=== PATIENT | female | born 1945 | race Caucasian/White ===

== ENCOUNTER 2016-09-22 21:50 | Emergency (ER) | payer OTHER ==
--- NOTE | 2016-09-22 23:36 | DIAGNOSTIC IMAGING REPORT ---
PROCEDURE: XR SOFT TISSUE NECK INDICATION: DIFFICULTY SWALLOWING TECHNIQUE: AP and lateral views. COMPARISON: None. FINDINGS: Soft tissues of the neck are within normal limits, including the airway, laryngeal ventricle, and epiglottis. Nasopharynx appears normal. Moderate to marked degenerative changes of the lower cervical spine with grade 1 (3 mm) degenerative listhesis of C4 on C5. IMPRESSION: 1. Normal soft tissues of the neck. 2. Moderate to marked degenerative change of the cervical spine.
--- NOTE | 2016-09-22 23:38 | DIAGNOSTIC IMAGING REPORT ---
PROCEDURE: XR FOOT 3 VIEWS - LEFT INDICATION: TRAUMA/INJURY TECHNIQUE: Three views. COMPARISON: None. FINDINGS: There are postoperative changes of the left foot. Status post vertical and corrective osteotomy of the left first metatarsal head with solitary screw (bunionectomy). Status post fixation of the second, third, and fifth toe phalanges extending from the distal phalanges through the metacarpal shafts with three metal pins. Status post partially healed corrective osteotomy of the left fifth metatarsal shaft transfixed with two screws. IMPRESSION: 1. Postoperative change of the left foot including left first metatarsal bunionectomy, percutaneous fixation and pinning of the phalanges of the second, third, and fifth toes, and corrective osteotomy of the left fifth metatarsal shaft. 2. Findings discussed with Dr. Becker.
--- NOTE | 2016-09-23 00:50 | ED CLINICAL REPORT ---
Clinical Report - Physicians/Mid Levels [address] [place] [address] 09/22/2016 21:51 Patient: AKASH GUTHRIE Time Seen: 22:32 Sep 22 2016. Arrived- By private vehicle. Historian- patient. CPT: ER phys charges level 4 (#[id number]). HISTORY OF PRESENT ILLNESS Chief Complaint: DYSPNEA and HISTORY OF ASTHMA. This started 5 days [employer]; ( Pt stated she is having difficulty breathing, including a cough which started after surgery on Friday. Pt reports increasing albuterol inhaler at home without relief.). She has had a cough. and is still present. The dyspnea is described as moderate and is worsened by exertion and is improved by rest. The patient has had a cough. She has had scant amounts of thick sputum. No chest pain or discomfort, anxiety or dizziness. She has had calf pain (after fall on her scooter .). (Patient notes her difficulty with breathing came on right after surgery. She did not have calf leg or swelling at that time. She tried her asthma medications but this didn't seem to help either. She notes that this has persisted. No fever or chills. Has a cough but scant sputum. She has lost her voice like laryngitis. She admits she was intubated for the procedure on her left foot.). Similar symptoms previously: As bad. Diagnosis: asthma. Recent medical care: The patient was seen recently at another facility in a clinic (yesterday: [place] [facility] walk-in.). Seen for similar symptoms. Evaluation/treatment- prednisone. Diagnosis: asthma. REVIEW OF SYSTEMS No eye irritation, nasal discharge, sinus drainage, nausea or vomiting. No abdominal pain, diarrhea, black stools, bloody stools or fainting episodes. No difficulty with urination, excessive urination, skin rash or enlarged lymph nodes. The patient has had a sore throat. Fell last night in the BR and landed on her surgical foot. Developed left calf pain. All systems otherwise negative, except as recorded above. PAST HISTORY Asthma. Appendectomy. Hammer toe operation. Knee Prosthesis. Shoulder Surgery. Tonsillectomy. Medications: Hydrocodone-Acetaminophen Oral. Allergies: Dicyclomine. SOCIAL HISTORY Never smoker. Occasional alcohol use. No drug use. ADDITIONAL NOTES The nursing notes have been reviewed. PHYSICAL EXAM Vital Signs: 09/22/2016 23:21 BP: 157/70. HR: 80. RR: 20. O2 saturation: 100%. 09/22/2016 22:18 HR: 78. RR: 18. O2 saturation: 95%. Temp: 98.2 F. Pain level now: 01/18. Appearance: Alert. No acute distress. Anxious. Eyes: Pupils equal, round and reactive to light. Eyes normal inspection. ENT: Ears normal. Nose normal. Pharynx normal. Uvula midline. Neck: Normal inspection. No jugular venous distention. Neck supple. CVS: Normal heart rate and rhythm. Heart sounds normal. Pulses normal. Respiratory: No respiratory distress. Expiratory mild bilateral wheezes in the bases. No stridor or rales. Abdomen: Soft and nontender. Back: Normal inspection. Skin: Skin warm. Normal skin color. No rash. Extremities: Extremities exhibit normal ROM. No calf tenderness. No lower extremity edema. Neuro: Oriented X 3. No motor deficit. No sensory deficit. Reflexes normal. LABS, X-RAYS, AND EKG Laboratory Tests: CBC w Diff: (MAGNUS: 09/22/2016 23:06) ( MsgRcvd 09/22/2016 23:30) Final results Test Result Flag Units (Reference) WHITE BLOOD COUNT 10.3 K/uL (4.5-11.5) RED BLOOD COUNT 4.20 M/uL (4.00-5.20) HEMOGLOBIN 12.8 gm/dL (12.0-16.0) HEMATOCRIT 37.5 % (36.0-46.0) MEAN CELL VOLUME 89 fL (80-100) MEAN CORPUSCULAR HGB 30 pg (26-34) MEAN CORPUSCULAR HGB CONC 34 g/dL (31-37) RED CELL DISTRIBUTION WIDTH 13.3 % (11.6-14.8) PLATELET COUNT 362 K/uL (150-400) NEUTROPHIL % 75.6 H % (50-75) LYMPH % 14.9 L % (25-40) MONO % 9.1 % (3-14) EOSINOPHIL % 0.2 % (0-4) BASOPHIL % 0.2 % (0-2) [id number]: (MAGNUS: 09/22/2016 23:06) ( [facility] 09/22/2016 23:42) Final results Test Result Flag Units (Reference) D-DIMER QUANTITATIVE 0.32 ug/mLFEU (0.27-0.52) The primary value of this quantitative assay relates toits negative predictive value (i.e. exclusion) of pulmonaryembolism/deep vein thrombosis/DIC.Elevated levels of d-dimer may also occur with:, age, cancer, inflammation, liver disease,post-op, infection, hematoma, coronary disease, peripheralarteriopathy, bleeding disorders and thrombolytic treatment.Results should be correlated with other clinical andradiological data.Testing Methodology: Latex Immunoassay [id number]: (MAGNUS: 09/22/2016 23:06) ( [facility] 09/22/2016 23:36) Final results Test Result Flag Units (Reference) C-REACTIVE PROTEIN 1.7 H mg/dL (0.0-0.9) [id number]: (MAGNUS: 09/22/2016 23:06) ( [facility] 09/23/2016 00:08) Final results Test Result Flag Units (Reference) PROCALCITONIN <0.5 ng/mL (0-0.5) PCT Concentration: Interpretation : Risk/option for action PCT <=0.5 ng/mL : Systemic : Low risk forinfection(sepsis): progression to severeis not likely. : systemic infection.Local bacterial : CAUTION-PCT levelsinfection is : below 0.5 ng/mL do notpossible. : exclude an infection,because localizedinfections (withoutsystemic signs) may beassociated with suchlow levels. If PCT ismeasured very earlyafter a bacterialchallenge (usually <6hours), these valuesmay still be low. Inthis case PCT shouldbe re-assessed 6-24hours later. PCT >0.5 and : Systemic infection: Moderate risk for<= 2 ng/mL : (sepsis) is : progression to severepossible, but : systemic infection.other conditions : The patient should beare known to : closely monitoredelevate PCT. : both clinically andby re-assessing PCTwithin 6-24 hours. PCT > 2 ng/mL : Systemic infection: High risk for(sepsis) is likely: progression to severeunless other : systemic infection.causes are known. : PCT >= 10 ng/mL : Important systemic: High likelihood ofinflammatory : severe sepsis orresponse, almost : septic shock.exclusively due to:severe bacterial :sepsis or septic :shock. : Culture, Strep Screen: (MAGNUS: 09/22/2016 23:06) ( MsgRcvd 09/22/2016 23:45) Final results Test Result Flag Units (Reference) RAPID STREP SCREEN - THROAT DATE: 09/22/16 NEGATIVE SCREEN: RAPID STREP SCREEN NEGATIVE; CONFIRMATION TO FOLLOW . Note - Tests: (Lateral neck : Soft tissues appear normal. Discussed with Dr Lancaster.). PROGRESS AND PROCEDURES Course of Care: Albuterol HHN pre 300 and post 330. Albuterol HHN Patient is stable. Symptoms better. Pt has mild tracheitis due to recent ETT with mild asthmatic wheezing. She is already on prednisone. Will add ceftin and have follow up in 2 days. She has her own HHN at home with plenty of medication. Patient/family counseled. Disposition: Discharged. Condition: stable. CLINICAL IMPRESSION Tracheitis due to endotracheal tube. Mild asthma. INSTRUCTIONS No strenuous activity. (cool vaporized air No antihistamines as it makes throat too dry. Continue HHN at home as you have been. Continue your 50 mg a day of prednisone.). Warnings: Further evaluation is necessary. GENERAL WARNINGS: Return or contact your physician immediately if your condition worsens or changes unexpectedly, if not improving as expected, or if other problems arise. Your Current Medications: CONTINUE TAKING THE FOLLOWING MEDICATIONS: Hydrocodone-Acetaminophen Oral. Prescription Medications: Ceftin 500 mg: take 1 tab orally every 12 hours for 10 days. No refills. Substitution is permissible. Follow-up: Follow up with your doctor in two days. Call for the next available appointment. Understanding of the discharge instructions verbalized by patient. Discharge instructions reviewed with and understanding was verbalized by spouse. (Electronically signed by Jerry Becker MD 09/23/2016 8:44)
--- NOTE | 2016-09-23 00:50 | ED NURSING NOTES ---
Clinical Report - Nurses [facility] [address] [place] [address] 09/22/2016 21:51 Patient: AKASH GUTHRIE TRIAGE Triage time 22:18 Sep 22 2016. Acuity: LEVEL 3. Chief Complaint: SHORTNESS OF BREATH. SEPSIS SCREEN: Sepsis Screen: negative. Negative (no infection suspected/documented). YASMINE COMA SCORE: Yasmine Coma Scale: 15- eyes open spontaneously (4); best verbal response- oriented and converses (5); best motor response- obeys commands (6). --22:29 Irene Norris 22:18 09/22/16. HR: 78. RR: 18. O2 saturation: 95%. Temp: 98.2 F (oral). Pain level now: 01/18. --22:29 Irene Norris 01:18 09/23/16. BP: 129/72. --01:18 Irene Norris. Weight: 68 kg stated. Height/Length: 66 inches Per Patient. BMI: 24.2. --22:27 Irene Norris. Medications Hydrocodone-Acetaminophen Oral. --22:23 Irene Norris. Allergies Dicyclomine. --22:25 Irene Norris. History Arrived by private vehicle. Historian: patient. Accompanied by family. ( Pt stated she is having difficulty breathing, including a cough which started after surgery on Friday. Pt reports increasing albuterol inhaler at home without relief.). She has had a cough. SOCIAL HX: Never smoker. Occasional alcohol use. No drug use. No infectious disease exposure. ABUSE ASSESSMENT: No report of abuse. NUTRITIONAL RISK ASSESSMENT: The nutritional risk assessment revealed no deficiencies. FUNCTIONAL ASSESSMENT: Functional assessment: no impairments noted. LEARNING NEEDS ASSESSMENT: The learning needs assessment revealed no barriers. FALL RISK ASSESSMENT: Fall risk assessment completed. Risk factors identified include patient age greater than 65 years and impairment of mobility. Fall interventions initiated. Side rails up x1. Bed in low position. Family at bedside. Call light in reach of patient. Instructed not to get up without assistance. SKIN INTEGRITY ASSESSMENT: Skin integrity risk assessment completed. No skin integrity risk identified. --22:29 Irene Norris. PROBLEMS: Asthma. --22:26 Irene Norris. ADDITIONAL SURGERIES: Appendectomy. Hammer toe operation. Knee Prosthesis. Shoulder Surgery. Tonsillectomy. --22:26 Irene Norris. Interventions ID band on patient. To treatment room. --22:29 Irene Norris. PHYSICAL ASSESSMENT <<STRICKEN ENTRY-- Ambulatory to room. GENERAL / NEURO / PSYCH: Alert. Oriented X 4. Appears in no acute distress. HEENT: Mucous membranes are pink. RESPIRATORY: No respiratory distress. Respirations not labored. Chest nontender. CVS: Normal sinus rhythm noted. GI / : Abdomen soft and nontender. SKIN: Skin is warm and dry. --22:30 Irene Norris --END STRIKE>> Correction --22:38 Irene Norris RESPIRATORY: The patient can speak in full sentences. Cough. Wheezing present. --22:31 Irene Norris 22:39 09/22/16. GENERAL / NEURO / PSYCH: Alert. Oriented X 4. Appears in no acute distress. HEENT: Mucous membranes are pink. RESPIRATORY: Mild respiratory distress. Respirations not labored. The patient can speak in full sentences. Cough. CVS: Normal sinus rhythm noted. SKIN: Skin is warm and dry. --22:39 Irene Norris. NURSING PROGRESS NOTES Monitoring of patient in place. Head of bed elevated. Reassurance given. Call light placed in reach. Side rails up x 1. Bed placed in lowest position. Brakes of bed on. Patient ready for evaluation- ED physician notified. --22:30 Irene Norris Patient transported to radiology by stretcher with Relcy. (23:08 Sep 22 2016). --23:08 Irene Norris Patient ID band checked for patient name and birthdate: patient confirmed. Throat swab obtained for rapid strep and culture; labeled in the presence of the patient and sent to lab. --23:10 Irene Norris Patient ID band checked for patient name: patient confirmed. Blood samples drawn from the left wrist with 23g butterfly by tech per protocol ; labeled in presence of the patient and sent to lab: shante shaw. ([id number]). --23:18 Rebecca Allen 23:21 09/22/2016 Albuterol Neb [place] Nebulizer 2.5 mg given. Given by the respiratory therapist. Allergies verified and confirmed 5 rights. --23:21 Irene Norris 23:21 09/22/16. BP: 157/70. HR: 80. RR: 20. O2 saturation: 100% on room air. --23:25 Irene Norris Reassessment after medication administered. Overall patient status- she states feels better. --23:40 Irene Norris 00:06 09/23/16. ( Per report from RT patient peak flow prior to nebulizer was 300 after nebulizer treatment patient peak flow is at 330). --00:06 Irene Norris 00:35 09/23/16. BP: 137/70. HR: 110. RR: 20. O2 saturation: 95% on room air. --00:36 Irene Norris ( PO fluids given to patient per provider okrenard). --00:37 Irene Norris 00:57 09/23/2016 Albuterol Neb TX Nebulizer 2.5 mg given. Given by the respiratory therapist. Allergies verified and confirmed 5 rights. --00:57 Irene Norris 01:00 09/23/2016 Keflex (Cephalexin) PO 500 mg given. Allergies verified and confirmed 5 rights. --01:05 Irene Norris. DISPOSITION / DISCHARGE Condition at departure: improved and stable. No learning barriers present. Discharge instructions provided and reviewed with the patient and spouse. Reviewed medication(s) side effects, precautions, dosing and course information. Prescription(s) given to the patient. Patient and spouse verbalized understanding. Written instructions provided in Setswana. ( Follow up with PCP in two days. Return if symptoms worsen.). The patient was discharged by the physician. She was discharged home and accompanied by spouse. She left the Emergency Department in a wheelchair and via private vehicle. Spouse driving. --01:18 Irene Norris 01:11 09/23/16. BP: 130/76. HR: 96. RR: 20. O2 saturation: 98% on room air. Temp: 98.9 F (oral). Pain level now: 0/10. --01:18 Irene Norris. Locked/Released at 09/23/2016 1:19 by Irene Norris,
--- NOTE | 2016-09-23 00:50 | ED CLINICAL REPORT ---
Clinical Report - Physicians/Mid Levels [facility] [address] [place] [address] 09/22/2016 21:51 Patient: AKASH GUTHRIE Time Seen: 22:32 Sep 22 2016. Arrived- By private vehicle. Historian- patient. CPT: ER phys charges level 4 (#[id number]). HISTORY OF PRESENT ILLNESS Chief Complaint: DYSPNEA and HISTORY OF ASTHMA. This started 5 days [employer]; ( Pt stated she is having difficulty breathing, including a cough which started after surgery on Friday. Pt reports increasing albuterol inhaler at home without relief.). She has had a cough. and is still present. The dyspnea is described as moderate and is worsened by exertion and is improved by rest. The patient has had a cough. She has had scant amounts of thick sputum. No chest pain or discomfort, anxiety or dizziness. She has had calf pain (after fall on her scooter .). (Patient notes her difficulty with breathing came on right after surgery. She did not have calf leg or swelling at that time. She tried her asthma medications but this didn't seem to help either. She notes that this has persisted. No fever or chills. Has a cough but scant sputum. She has lost her voice like laryngitis. She admits she was intubated for the procedure on her left foot.). Similar symptoms previously: As bad. Diagnosis: asthma. Recent medical care: The patient was seen recently at another facility in a clinic (yesterday: [place] [facility] walk-in.). Seen for similar symptoms. Evaluation/treatment- prednisone. Diagnosis: asthma. REVIEW OF SYSTEMS No eye irritation, nasal discharge, sinus drainage, nausea or vomiting. No abdominal pain, diarrhea, black stools, bloody stools or fainting episodes. No difficulty with urination, excessive urination, skin rash or enlarged lymph nodes. The patient has had a sore throat. Fell last night in the [place] and landed on her surgical foot. Developed left calf pain. All systems otherwise negative, except as recorded above. PAST HISTORY Asthma. Appendectomy. Hammer toe operation. Knee Prosthesis. Shoulder Surgery. Tonsillectomy. Medications: Hydrocodone-Acetaminophen Oral. Allergies: Dicyclomine. SOCIAL HISTORY Never smoker. Occasional alcohol use. No drug use. ADDITIONAL NOTES The nursing notes have been reviewed. PHYSICAL EXAM Vital Signs: 09/22/2016 23:21 BP: 157/70. HR: 80. RR: 20. O2 saturation: 100%. 09/22/2016 22:18 HR: 78. RR: 18. O2 saturation: 95%. Temp: 98.2 F. Pain level now: 01/18. Appearance: Alert. No acute distress. Anxious. Eyes: Pupils equal, round and reactive to light. Eyes normal inspection. ENT: Ears normal. Nose normal. Pharynx normal. Uvula midline. Neck: Normal inspection. No jugular venous distention. Neck supple. CVS: Normal heart rate and rhythm. Heart sounds normal. Pulses normal. Respiratory: No respiratory distress. Expiratory mild bilateral wheezes in the bases. No stridor or rales. Abdomen: Soft and nontender. Back: Normal inspection. Skin: Skin warm. Normal skin color. No rash. Extremities: Extremities exhibit normal ROM. No calf tenderness. No lower extremity edema. Neuro: Oriented X 3. No motor deficit. No sensory deficit. Reflexes normal. LABS, X-RAYS, AND EKG Laboratory Tests: CBC w Diff: (MAGNUS: 09/22/2016 23:06) ( MsgRcvd 09/22/2016 23:30) Final results Test Result Flag Units (Reference) WHITE BLOOD COUNT 10.3 K/uL (4.5-11.5) RED BLOOD COUNT 4.20 M/uL (4.00-5.20) HEMOGLOBIN 12.8 gm/dL (12.0-16.0) HEMATOCRIT 37.5 % (36.0-46.0) MEAN CELL VOLUME 89 fL (80-100) MEAN CORPUSCULAR HGB 30 pg (26-34) MEAN CORPUSCULAR HGB CONC 34 g/dL (31-37) RED CELL DISTRIBUTION WIDTH 13.3 % (11.6-14.8) PLATELET COUNT 362 K/uL (150-400) NEUTROPHIL % 75.6 H % (50-75) LYMPH % 14.9 L % (25-40) MONO % 9.1 % (3-14) EOSINOPHIL % 0.2 % (0-4) BASOPHIL % 0.2 % (0-2) [id number]: (MAGNUS: 09/22/2016 23:06) ( [facility] 09/22/2016 23:42) Final results Test Result Flag Units (Reference) D-DIMER QUANTITATIVE 0.32 ug/mLFEU (0.27-0.52) The primary value of this quantitative assay relates toits negative predictive value (i.e. exclusion) of pulmonaryembolism/deep vein thrombosis/DIC.Elevated levels of d-dimer may also occur with:, age, cancer, inflammation, liver disease,post-op, infection, hematoma, coronary disease, peripheralarteriopathy, bleeding disorders and thrombolytic treatment.Results should be correlated with other clinical andradiological data.Testing Methodology: Latex Immunoassay [id number]: (MAGNUS: 09/22/2016 23:06) ( [facility] 09/22/2016 23:36) Final results Test Result Flag Units (Reference) C-REACTIVE PROTEIN 1.7 H mg/dL (0.0-0.9) [id number]: (MAGNUS: 09/22/2016 23:06) ( [facility] 09/23/2016 00:08) Final results Test Result Flag Units (Reference) PROCALCITONIN <0.5 ng/mL (0-0.5) PCT Concentration: Interpretation : Risk/option for action PCT <=0.5 ng/mL : Systemic : Low risk forinfection(sepsis): progression to severeis not likely. : systemic infection.Local bacterial : CAUTION-PCT levelsinfection is : below 0.5 ng/mL do notpossible. : exclude an infection,because localizedinfections (withoutsystemic signs) may beassociated with suchlow levels. If PCT ismeasured very earlyafter a bacterialchallenge (usually <6hours), these valuesmay still be low. Inthis case PCT shouldbe re-assessed 6-24hours later. PCT >0.5 and : Systemic infection: Moderate risk for<= 2 ng/mL : (sepsis) is : progression to severepossible, but : systemic infection.other conditions : The patient should beare known to : closely monitoredelevate PCT. : both clinically andby re-assessing PCTwithin 6-24 hours. PCT > 2 ng/mL : Systemic infection: High risk for(sepsis) is likely: progression to severeunless other : systemic infection.causes are known. : PCT >= 10 ng/mL : Important systemic: High likelihood ofinflammatory : severe sepsis orresponse, almost : septic shock.exclusively due to:severe bacterial :sepsis or septic :shock. : Culture, Strep Screen: (MAGNUS: 09/22/2016 23:06) ( MsgRcvd 09/22/2016 23:45) Final results Test Result Flag Units (Reference) RAPID STREP SCREEN - THROAT DATE: 09/22/16 NEGATIVE SCREEN: RAPID STREP SCREEN NEGATIVE; CONFIRMATION TO FOLLOW . Note - Tests: (Lateral neck : Soft tissues appear normal. Discussed with Dr Lancaster.). PROGRESS AND PROCEDURES Course of Care: Albuterol HHN pre 300 and post 330. Albuterol HHN Patient is stable. Symptoms better. Pt has mild tracheitis due to recent ETT with mild asthmatic wheezing. She is already on prednisone. Will add ceftin and have follow up in 2 days. She has her own HHN at home with plenty of medication. Patient/family counseled. Disposition: Discharged. Condition: stable. CLINICAL IMPRESSION Tracheitis due to endotracheal tube. Mild asthma. INSTRUCTIONS No strenuous activity. (cool vaporized air No antihistamines as it makes throat too dry. Continue HHN at home as you have been. Continue your 50 mg a day of prednisone.). Warnings: Further evaluation is necessary. GENERAL WARNINGS: Return or contact your physician immediately if your condition worsens or changes unexpectedly, if not improving as expected, or if other problems arise. Your Current Medications: CONTINUE TAKING THE FOLLOWING MEDICATIONS: Hydrocodone-Acetaminophen Oral. Prescription Medications: Ceftin 500 mg: take 1 tab orally every 12 hours for 10 days. No refills. Substitution is permissible. Follow-up: Follow up with your doctor in two days. Call for the next available appointment. Understanding of the discharge instructions verbalized by patient. Discharge instructions reviewed with and understanding was verbalized by spouse. (Electronically signed by Jerry Becker MD 09/23/2016 8:44)
--- NOTE | 2016-09-23 00:50 | ED ORDER SUMMARY ---
..... Patient: AKASH GUTHRIE OrderSheet [facility] VisitID: [id number] [address] [place] [address] 71y, F Registration Date/Time: 09/22/2016 ORDER SHEET Weight: 68.0 kg (stated) Allergies: Dicyclomine GENERAL ORDERS: CBC w Diff Urgent (22:51 09/22/2016 Grey FELDER) (Ack 22:54 AMcQuoid ER Tech1) (23:07 AMcQuoid ER Tech1) PCT (Procalcitonin) Urgent (22:51 09/22/2016 Grey FELDER) (Ack 22:54 AMcQuoid ER Tech1) (23:07 AMcQuoid ER Tech1) CRP Urgent (22:51 09/22/2016 Grey FELDER) (Ack 22:54 AMcQuoid ER Tech1) (23:07 AMcQuoid ER Tech1) Culture, Strep Screen Urgent (22:51 09/22/2016 Grey FELDER) (Ack 22:54 AMcQuoid ER Tech1) (Ack 22:54 HSoule) (23:07 AMcQuoid ER Tech1) Soft Tissue Neck Urgent (22:51 09/22/2016 Grey FELDER) (Ack 22:54 AMcQuoid ER Tech1) (23:15 RFay) Foot 3V Left Urgent (22:51 09/22/2016 Grey FELDER) (Ack 22:54 AMcQuoid ER Tech1) (23:15 RFay) D-Dimer Urgent (22:54 09/22/2016 Grey FELDER) (Ack 23:07 AMcQuoid ER Tech1) (23:07 AMcQuoid ER Tech1) MEDICATION ORDERS: Albuterol Neb Tx 2.5 mg (NOW) (with pre and post peak flows.) (22:52 09/22/2016 Grey FELDER) (23:21 HSoule) Albuterol Neb Tx 2.5 mg (HHN) (00:36 09/23/2016 Grey FELDER) (Ack 0:48 HSoule) (0:57 HSoule) Keflex PO 500 mg (NOW) (00:45 09/23/2016 Grey FELDER) (Ack 0:49 HSoule) (1:05 HSoule) IV FLUIDS: ORDER SHEET NOTES: [Electronically signed by Irene Norris (:09/23/2016)] [Electronically signed by Jerry Becker MD (08:44 09/23/2016)] [Electronically locked/signed by Irene Norris (09/23/2016)]
--- NOTE | 2016-09-23 00:50 | ED ORDER SUMMARY ---
..... Patient: AKASH GUTHRIE OrderSheet [facility] VisitID: [id number] [address] [place] [address] 71y, F Registration Date/Time: 09/22/2016 ORDER SHEET Weight: 68.0 kg (stated) Allergies: Dicyclomine GENERAL ORDERS: CBC w Diff Urgent (22:51 09/22/2016 Grey FELDER) (Ack 22:54 AMcQuoid ER Tech1) (23:07 AMcQuoid ER Tech1) PCT (Procalcitonin) Urgent (22:51 09/22/2016 Grey FELDER) (Ack 22:54 AMcQuoid ER Tech1) (23:07 AMcQuoid ER Tech1) CRP Urgent (22:51 09/22/2016 Grey FELDER) (Ack 22:54 AMcQuoid ER Tech1) (23:07 AMcQuoid ER Tech1) Culture, Strep Screen Urgent (22:51 09/22/2016 Grey FELDER) (Ack 22:54 AMcQuoid ER Tech1) (Ack 22:54 HSoule) (23:07 AMcQuoid ER Tech1) Soft Tissue Neck Urgent (22:51 09/22/2016 Grey FELDER) (Ack 22:54 AMcQuoid ER Tech1) (23:15 RFay) Foot 3V Left Urgent (22:51 09/22/2016 Grey FELDER) (Ack 22:54 AMcQuoid ER Tech1) (23:15 RFay) D-Dimer Urgent (22:54 09/22/2016 Grey FELDER) (Ack 23:07 AMcQuoid ER Tech1) (23:07 AMcQuoid ER Tech1) MEDICATION ORDERS: Albuterol Neb Tx 2.5 mg (NOW) (with pre and post peak flows.) (22:52 09/22/2016 Grey FELDER) (23:21 HSoule) Albuterol Neb Tx 2.5 mg (HHN) (00:36 09/23/2016 Grey FELDER) (Ack 0:48 HSoule) (0:57 HSoule) Keflex PO 500 mg (NOW) (00:45 09/23/2016 Grey FELDER) (Ack 0:49 HSoule) (1:05 HSoule) IV FLUIDS: ORDER SHEET NOTES: [Electronically signed by Irene Nroris (:09/23/2016)] [Electronically signed by Jerry Becker MD (08:44 09/23/2016)] [Electronically locked/signed by Irene Norris (09/23/2016)]
--- NOTE | 2016-09-23 00:50 | ED NURSING NOTES ---
Clinical Report - Nurses [facility] [address] [place] [address] 09/22/2016 21:51 Patient: AKASH GUTHRIE TRIAGE Triage time 22:18 Sep 22 2016. Acuity: LEVEL 3. Chief Complaint: SHORTNESS OF BREATH. SEPSIS SCREEN: Sepsis Screen: negative. Negative (no infection suspected/documented). YASMINE COMA SCORE: Yasmine Coma Scale: 15- eyes open spontaneously (4); best verbal response- oriented and converses (5); best motor response- obeys commands (6). --22:29 Irene Norris 22:18 09/22/16. HR: 78. RR: 18. O2 saturation: 95%. Temp: 98.2 F (oral). Pain level now: 01/18. --22:29 Irene Norris 01:18 09/23/16. BP: 129/72. --01:18 Irene Norris. Weight: 68 kg stated. Height/Length: 66 inches Per Patient. BMI: 24.2. --22:27 Irene Norris. Medications Hydrocodone-Acetaminophen Oral. --22:23 Irene Norris. Allergies Dicyclomine. --22:25 Irene Norris. History Arrived by private vehicle. Historian: patient. Accompanied by family. ( Pt stated she is having difficulty breathing, including a cough which started after surgery on Friday. Pt reports increasing albuterol inhaler at home without relief.). She has had a cough. SOCIAL HX: Never smoker. Occasional alcohol use. No drug use. No infectious disease exposure. ABUSE ASSESSMENT: No report of abuse. NUTRITIONAL RISK ASSESSMENT: The nutritional risk assessment revealed no deficiencies. FUNCTIONAL ASSESSMENT: Functional assessment: no impairments noted. LEARNING NEEDS ASSESSMENT: The learning needs assessment revealed no barriers. FALL RISK ASSESSMENT: Fall risk assessment completed. Risk factors identified include patient age greater than 65 years and impairment of mobility. Fall interventions initiated. Side rails up x1. Bed in low position. Family at bedside. Call light in reach of patient. Instructed not to get up without assistance. SKIN INTEGRITY ASSESSMENT: Skin integrity risk assessment completed. No skin integrity risk identified. --22:29 Irene Norris. PROBLEMS: Asthma. --22:26 Irene Norris. ADDITIONAL SURGERIES: Appendectomy. Hammer toe operation. Knee Prosthesis. Shoulder Surgery. Tonsillectomy. --22:26 Irene Norris. Interventions ID band on patient. To treatment room. --22:29 Irene Norris. PHYSICAL ASSESSMENT <<STRICKEN ENTRY-- Ambulatory to room. GENERAL / NEURO / PSYCH: Alert. Oriented X 4. Appears in no acute distress. HEENT: Mucous membranes are pink. RESPIRATORY: No respiratory distress. Respirations not labored. Chest nontender. CVS: Normal sinus rhythm noted. GI / : Abdomen soft and nontender. SKIN: Skin is warm and dry. --22:30 Irene Norris --END STRIKE>> Correction --22:38 Irene Norris RESPIRATORY: The patient can speak in full sentences. Cough. Wheezing present. --22:31 Irene Norris 22:39 09/22/16. GENERAL / NEURO / PSYCH: Alert. Oriented X 4. Appears in no acute distress. HEENT: Mucous membranes are pink. RESPIRATORY: Mild respiratory distress. Respirations not labored. The patient can speak in full sentences. Cough. CVS: Normal sinus rhythm noted. SKIN: Skin is warm and dry. --22:39 Irene Norris. NURSING PROGRESS NOTES Monitoring of patient in place. Head of bed elevated. Reassurance given. Call light placed in reach. Side rails up x 1. Bed placed in lowest position. Brakes of bed on. Patient ready for evaluation- ED physician notified. --22:30 Irene Norris Patient transported to radiology by stretcher with [employer]. (23:08 Sep 22 2016). --23:08 Irene Norris Patient ID band checked for patient name and birthdate: patient confirmed. Throat swab obtained for rapid strep and culture; labeled in the presence of the patient and sent to lab. --23:10 Irene Norris Patient ID band checked for patient name: patient confirmed. Blood samples drawn from the left wrist with 23g butterfly by tech per protocol ; labeled in presence of the patient and sent to lab: shante shaw. ([id number]). --23:18 Rebecca Allen 23:21 09/22/2016 Albuterol Neb TX Nebulizer 2.5 mg given. Given by the respiratory therapist. Allergies verified and confirmed 5 rights. --23:21 Irene oNrris 23:21 09/22/16. BP: 157/70. HR: 80. RR: 20. O2 saturation: 100% on room air. --23:25 Irene Norris Reassessment after medication administered. Overall patient status- she states feels better. --23:40 Irene Norris 00:06 09/23/16. ( Per report from RT patient peak flow prior to nebulizer was 300 after nebulizer treatment patient peak flow is at 330). --00:06 Irene Norris 00:35 09/23/16. BP: 137/70. HR: 110. RR: 20. O2 saturation: 95% on room air. --00:36 Irene Norris ( PO fluids given to patient per provider okrenard). --00:37 Irene Norris 00:57 09/23/2016 Albuterol Neb TX Nebulizer 2.5 mg given. Given by the respiratory therapist. Allergies verified and confirmed 5 rights. --00:57 Irene Norris 01:00 09/23/2016 Keflex (Cephalexin) PO 500 mg given. Allergies verified and confirmed 5 rights. --01:05 Irene Norris. DISPOSITION / DISCHARGE Condition at departure: improved and stable. No learning barriers present. Discharge instructions provided and reviewed with the patient and spouse. Reviewed medication(s) side effects, precautions, dosing and course information. Prescription(s) given to the patient. Patient and spouse verbalized understanding. Written instructions provided in Turkish. ( Follow up with PCP in two days. Return if symptoms worsen.). The patient was discharged by the physician. She was discharged home and accompanied by spouse. She left the Emergency Department in a wheelchair and via private vehicle. Spouse driving. --01:18 Irene Norris 01:11 09/23/16. BP: 130/76. HR: 96. RR: 20. O2 saturation: 98% on room air. Temp: 98.9 F (oral). Pain level now: 0/10. --01:18 Irene Norris. Locked/Released at 09/23/2016 1:19 by Irene Norris,
--- NOTE | 2016-09-23 08:44 | ED MAR SUMMARY ---
..... Medication Administration Record [facility] [address] [place] [place] [address] Patient: AKASH GUTHRIE Visit ID: [id number] 71y, F Weight: 68.0 kg Height/Length: 66 in BMI: 24.2 ALLERGIES: Dicyclomine Given 23:21 09/22/2016 Irene Norris, Medication Administered: ALBUTEROL [NEB TX], Dose: 2.5 mg Nebulizer Neb TX. Medication Ordered: Albuterol Neb Tx 2.5 mg (NOW) (with pre and post peak flows.). Given 00:57 09/23/2016 Irene Norris, Medication Administered: ALBUTEROL [NEB TX], Dose: 2.5 mg Nebulizer Neb TX. Medication Ordered: Albuterol Neb Tx 2.5 mg (HHN). Given 01:00 09/23/2016 Irene Norris, Medication Administered: KEFLEX [PO] (CEPHALEXIN), Dose: 500 mg PO. Medication Ordered: Keflex PO 500 mg (NOW).
--- NOTE | 2016-09-23 08:44 | ED MED RECONCILIATION SUMMARY ---
Patient: AKASH GUTHRIE Medication Reconciliation Report [facility] VisitID: [id number] [address] [place] [address] 71y, F Registration Date/Time: 09/22/2016 Weight: 68.0 kg Height/Length: 66 in. BMI: 24.2 ALLERGIES: Dicyclomine The patient's Home Medications are listed below: CONTINUE TAKING THE FOLLOWING MEDICATIONS: Hydrocodone-Acetaminophen Oral The source(s) of the original Home Medication information: Not obtained. The following Medications were given to the patient in the Emergency Department: Albuterol [Neb Tx] Neb TX 2.5 mg, administered: 09/22/2016 11:21:00 PM Albuterol [Neb Tx] Neb TX 2.5 mg, administered: 09/23/2016 12:57:00 AM Keflex [PO] PO 500 mg, administered: 09/23/2016 1:00:00 AM The following Medications were prescribed to the patient: Ceftin 500 mg: take 1 tab orally every 12 hours for 10 days. No refills. Substitution is permissible. -- Jerry Becker MD
--- NOTE | 2016-09-23 08:44 | ED MED RECONCILIATION SUMMARY ---
Patient: AKASH GUTHRIE Medication Reconciliation Report [facility] VisitID: [id number] [address] [place] [address] 71y, F Registration Date/Time: 09/22/2016 Weight: 68.0 kg Height/Length: 66 in. BMI: 24.2 ALLERGIES: Dicyclomine The patient's Home Medications are listed below: CONTINUE TAKING THE FOLLOWING MEDICATIONS: Hydrocodone-Acetaminophen Oral The source(s) of the original Home Medication information: Not obtained. The following Medications were given to the patient in the Emergency Department: Albuterol [Neb Tx] Neb TX 2.5 mg, administered: 09/22/2016 11:21:00 PM Albuterol [Neb Tx] Neb TX 2.5 mg, administered: 09/23/2016 12:57:00 AM Keflex [PO] PO 500 mg, administered: 09/23/2016 1:00:00 AM The following Medications were prescribed to the patient: Ceftin 500 mg: take 1 tab orally every 12 hours for 10 days. No refills. Substitution is permissible. -- Jerry Becker MD
--- NOTE | 2016-09-23 08:44 | ED MAR SUMMARY ---
..... Medication Administration Record [facility] [address] [place] [address] Patient: AKASH GUTHRIE Visit ID: [id number] 71y, F Weight: 68.0 kg Height/Length: 66 in BMI: 24.2 ALLERGIES: Dicyclomine Given 23:21 09/22/2016 Irene Norris, Medication Administered: ALBUTEROL [NEB TX], Dose: 2.5 mg Nebulizer Neb TX. Medication Ordered: Albuterol Neb Tx 2.5 mg (NOW) (with pre and post peak flows.). Given 00:57 09/23/2016 Irene Norris, Medication Administered: ALBUTEROL [NEB TX], Dose: 2.5 mg Nebulizer Neb TX. Medication Ordered: Albuterol Neb Tx 2.5 mg (HHN). Given 01:00 09/23/2016 Irene Norris, Medication Administered: KEFLEX [PO] (CEPHALEXIN), Dose: 500 mg PO. Medication Ordered: Keflex PO 500 mg (NOW).
--- NOTE | 2016-09-23 08:44 | ED DISCHARGE INSTRUCTIONS ---
Patient: AKASH GUTHRIE General Instructions [facility] VisitID: [id number] [address] [place] [address] 71y, F Registration Date/Time: 09/22/2016 Tracheitis due to endotracheal tube. Mild asthma. INSTRUCTIONS No strenuous activity. (cool vaporized air No antihistamines as it makes throat too dry. Continue HHN at home as you have been. Continue your 50 mg a day of prednisone.). Warnings: Further evaluation is necessary. GENERAL WARNINGS: Return or contact your physician immediately if your condition worsens or changes unexpectedly, if not improving as expected, or if other problems arise. Your Current Medications: CONTINUE TAKING THE FOLLOWING MEDICATIONS: Hydrocodone-Acetaminophen Oral. Prescription Medications: Ceftin 500 mg: take 1 tab orally every 12 hours for 10 days. No refills. Substitution is permissible. Follow-up: Follow up with your doctor in two days. Call for the next available appointment. Understanding of the discharge instructions verbalized by patient. Discharge instructions reviewed with and understanding was verbalized by spouse. No strenuous activity. (Electronically signed by Jerry Becker MD 09/23/2016 8:44)
--- NOTE | 2016-09-23 08:44 | ED DISCHARGE INSTRUCTIONS ---
Patient: AKASH GUTHRIE General Instructions [facility] VisitID: [id number] [address] [place] [address] 71y, F Registration Date/Time: 09/22/2016 Tracheitis due to endotracheal tube. Mild asthma. INSTRUCTIONS No strenuous activity. (cool vaporized air No antihistamines as it makes throat too dry. Continue HHN at home as you have been. Continue your 50 mg a day of prednisone.). Warnings: Further evaluation is necessary. GENERAL WARNINGS: Return or contact your physician immediately if your condition worsens or changes unexpectedly, if not improving as expected, or if other problems arise. Your Current Medications: CONTINUE TAKING THE FOLLOWING MEDICATIONS: Hydrocodone-Acetaminophen Oral. Prescription Medications: Ceftin 500 mg: take 1 tab orally every 12 hours for 10 days. No refills. Substitution is permissible. Follow-up: Follow up with your doctor in two days. Call for the next available appointment. Understanding of the discharge instructions verbalized by patient. Discharge instructions reviewed with and understanding was verbalized by spouse. No strenuous activity. (Electronically signed by Jerry Becker MD 09/23/2016 8:44)
== END 2016-09-23 01:20 | disposition home or self-care (01) ==
LOC: ED SRH 21:50
DX: J95.89 Other postprocedural complications and disorders of respiratory system, not elsewhere classified (principal); J04.10 Acute tracheitis without obstruction; Y83.8 Other surgical procedures as the cause of abnormal reaction of the patient, or of later complication, without mention of misadventure at the time of the procedure; J45.909 Unspecified asthma, uncomplicated; Z88.8 Allergy status to other drugs, medicaments and biological substances

== ENCOUNTER 2016-10-01 20:31 | Emergency (ER) | payer OTHER ==
--- NOTE | 2016-10-01 22:16 | DIAGNOSTIC IMAGING REPORT ---
PROCEDURE: XR CHEST 2 VIEW INDICATION: COUGH TECHNIQUE: PA and lateral view. COMPARISON: None. FINDINGS: Hyperinflation with mild bibasilar scarring. Cardiovascular structures are normal. Mild degenerative changes of the spine. IMPRESSION: 1. Hyperinflation with bibasilar scarring
--- NOTE | 2016-10-01 22:22 | ED NURSING NOTES ---
Clinical Report - Nurses [facility] [address] [place] [address] 10/01/2016 20:32 Patient: AKASH GUTHRIE TRIAGE Triage time 20:46 Oct 01 2016. Acuity: LEVEL 4. --20:50 Armond Felton R.N. 20:46 10/01/16. BP: 145/68. HR: 78. RR: 16. O2 saturation: 99%. Temp: 97.9 F. Pain level now 5/10. --20:50 Armond Felton R.N. Chief Complaint: (sore throat. had surgery on 09-17-16, has been seen 3 times for throat irritation.). --22:33 Lurdes Felix R.N. Weight: 68 kg stated. Height/Length: 65 inches Per Patient. BMI: 25. --20:48 Armond Felton R.N. Medications Hydrocodone-Acetaminophen Oral. --20:48 Armond Felton R.N. PredniSONE Oral. --20:48 Armond Felton R.N. Allergies Dicyclomine. --20:48 Armond Felton R.N. Doxycycline. --20:48 Armond Felton R.N. Erythromycin. --21:02 Armond Felton R.N. History Arrived by private vehicle. ( Pt reports her throat " fells more constricted " ot is coughing up clear fluid). Onset. (10 days). SOCIAL HX: Never smoker. Occasional alcohol use. No drug use. --20:50 Armond Felton R.N. PROBLEMS: Asthma. --20:49 Armond Felton R.N. ADDITIONAL SURGERIES: Appendectomy. Hammer toe operation. Knee Prosthesis. Shoulder Surgery. Tonsillectomy. --20:49 Armond Felton R.N. Interventions ID band on patient. To treatment room. --20:50 Armond Felton R.N. PHYSICAL ASSESSMENT ( Swollen throat). GENERAL / NEURO / PSYCH: Alert. Oriented X 4. Appears in no acute distress. HEENT: Pupils equal, round and reactive to light. No facial asymmetry noted. Mucous membranes are pink. RESPIRATORY: Respirations not labored. Chest nontender. Breath sounds within normal limits. SKIN: Skin is warm and dry. --20:54 Armond Felton R.N. NURSING PROGRESS NOTES Head of bed elevated. Two patient identifiers checked. Call light placed in reach. Side rails up x 1. Bed placed in lowest position. Brakes of bed on. --20:43 Lurdes Felix R.N. Pulse oximeter and NIBP monitor placed on patient; monitor alarms on. --20:44 Lurdes Felix R.N. Pulse oximeter placed on patient. Call light placed in reach. Side rails up x 1. Bed placed in lowest position. --20:54 Armond Felton R.N. Care transferred and report received. --22:13 Lurdes Felix R.N. DISPOSITION / DISCHARGE Condition at departure: stable. No learning barriers present. Discharge instructions provided and reviewed with the patient. Patient verbalized understanding. Written instructions provided in [place]ibian. The patient was discharged home and accompanied by spouse. She left the Emergency Department ambulatory and via private vehicle. Spouse driving. --22:29 Lurdes Felix R.N. 22:29 10/01/16. BP: 137/74. HR: 81. RR: 16. O2 saturation: 98% on room air. Temp: deferred. Pain level now: 0/10. --22:29 Lurdes Felix R.N. Locked/Released at 10/01/2016 22:34 by Lurdes Felix R.N.
--- NOTE | 2016-10-01 22:22 | ED CLINICAL REPORT ---
Clinical Report - Physicians/Mid Levels [facility] [address] [place] [address] 10/01/2016 20:32 Patient: AKASH GUTHRIE Time Seen: 20:58. Arrived- By private vehicle. Historian- patient. HISTORY OF PRESENT ILLNESS Chief Complaint: DYSPNEA and HISTORY OF ASTHMA. This started about 10 days ago and is still present. It was abrupt in onset and has been constant. The dyspnea is described as moderate. The patient has had a cough productive of scant amounts of thick, clear sputum (since before her L foot surgery done on the of of this month). No fever, chills, chest pain or discomfort or calf pain. No foot swelling. She has experienced sweating episodes and had wheezing and dyspnea on exertion. Recent medical care: The patient was seen recently at this facility and another facility in a clinic. Seen for similar symptoms. Evaluation/treatment: antibiotic prescribed. REVIEW OF SYSTEMS No chills, fever, calf pain, chest pain or pedal edema. No palpitations, abdominal pain, black stools, bloody stools or constipation. No diarrhea, nausea, vomiting or urinary problems. The patient has experienced sweats. All systems otherwise negative, except as recorded above. PAST HISTORY PCP - [facility]. Problems: Asthma. Additional Surgeries: Appendectomy. Hammer toe operation. Knee Prosthesis. Shoulder Surgery. Tonsillectomy. Medications: Azithromycin Oral. PredniSONE Oral. Hydrocodone-Acetaminophen Oral. Allergies: Dicyclomine. Doxycycline. Erythromycin. SOCIAL HISTORY Never smoker. Occasional alcohol use. No drug use. She lives with spouse. Has good social support. FAMILY HISTORY Diabetes in first-degree relative (mother); heart disease in first-degree relative (mother and father), grandparent; asthma in first-degree relative (father). mother with dementia. ADDITIONAL NOTES The nursing notes have been reviewed. PHYSICAL EXAM Vital Signs: 10/01/2016 20:46 BP: 145/68. HR: 78. RR: 16. O2 saturation: 99%. Temp: 97.9 F. Have been reviewed. Appearance: Alert. Eyes: Pupils equal, round and reactive to light. ENT: Mild pharyngeal erythema. (hoarse speech). Neck: Normal inspection. No jugular venous distention. Neck supple. No JVD, thyromegaly or carotid bruit. CVS: Normal heart rate and rhythm. Heart sounds normal. Pulses normal. Respiratory: No respiratory distress. Breath sounds normal. Abdomen: Soft and nontender. No organomegaly. Back: Normal inspection. Skin: Skin warm and dry. Normal skin color. Normal skin turgor. Extremities: Extremities exhibit normal ROM. No calf tenderness. No lower extremity edema. LABS, X-RAYS, AND EKG Chest X-ray: Hyperinflation present. (bibasilar stranding likely scarring scarring or possibly atelectasis). The X-rays were interpreted contemporaneously by me and discussed with the radiologist. PROGRESS AND PROCEDURES Course of Care: Patient is stable. Patient/family counseled. Old medical records reviewed. Disposition: Discharged. Condition: stable. CLINICAL IMPRESSION hoarseness. INSTRUCTIONS Warnings: Further evaluation is necessary. GENERAL WARNINGS: Return or contact your physician immediately if your condition worsens or changes unexpectedly, if not improving as expected, or if other problems arise. Your Current Medications: CONTINUE TAKING THE FOLLOWING MEDICATIONS: Azithromycin Oral. Hydrocodone-Acetaminophen Oral. PredniSONE Oral. Follow-up: Follow up with your doctor tomorrow. Call for the next available appointment. Follow up with an ear, nose and throat physician (an racing driver)- as recommended by your primary care physician. Understanding of the discharge instructions verbalized by patient and family. Follow-up with: Jeramie Lin MD, ENT, , [address], , [place], [id number] Follow up. Call for the next available appointment. (Electronically signed by Dante Faulkner MD 10/01/2016 22:56)
--- NOTE | 2016-10-01 22:22 | ED NURSING NOTES ---
Clinical Report - Nurses [facility] [address] [place] [address] 10/01/2016 20:32 Patient: AKASH GUTHRIE TRIAGE Triage time 20:46 Oct 01 2016. Acuity: LEVEL 4. --20:50 Armond Felton R.N. 20:46 10/01/16. BP: 145/68. HR: 78. RR: 16. O2 saturation: 99%. Temp: 97.9 F. Pain level now 5/10. --20:50 Armond Felton R.N. Chief Complaint: (sore throat. had surgery on 09-17-16, has been seen 3 times for throat irritation.). --22:33 Lurdes Felix R.N. Weight: 68 kg stated. Height/Length: 65 inches Per Patient. BMI: 25. --20:48 Armond Felton R.N. Medications Hydrocodone-Acetaminophen Oral. --20:48 Armond Felton R.N. PredniSONE Oral. --20:48 Armond Felton R.N. Allergies Dicyclomine. --20:48 Armond Felton R.N. Doxycycline. --20:48 Armond Felton R.N. Erythromycin. --21:02 Armond Felton R.N. History Arrived by private vehicle. ( Pt reports her throat " fells more constricted " ot is coughing up clear fluid). Onset. (10 days). SOCIAL HX: Never smoker. Occasional alcohol use. No drug use. --20:50 Armond Felton R.N. PROBLEMS: Asthma. --20:49 Armond Felton R.N. ADDITIONAL SURGERIES: Appendectomy. Hammer toe operation. Knee Prosthesis. Shoulder Surgery. Tonsillectomy. --20:49 Armond Felton R.N. Interventions ID band on patient. To treatment room. --20:50 Armond Felton R.N. PHYSICAL ASSESSMENT ( Swollen throat). GENERAL / NEURO / PSYCH: Alert. Oriented X 4. Appears in no acute distress. HEENT: Pupils equal, round and reactive to light. No facial asymmetry noted. Mucous membranes are pink. RESPIRATORY: Respirations not labored. Chest nontender. Breath sounds within normal limits. SKIN: Skin is warm and dry. --20:54 Armond Felton R.N. NURSING PROGRESS NOTES Head of bed elevated. Two patient identifiers checked. Call light placed in reach. Side rails up x 1. Bed placed in lowest position. Brakes of bed on. --20:43 Lurdes Felix R.N. Pulse oximeter and NIBP monitor placed on patient; monitor alarms on. --20:44 Lurdes Felix R.N. Pulse oximeter placed on patient. Call light placed in reach. Side rails up x 1. Bed placed in lowest position. --20:54 Armond Felton R.N. Care transferred and report received. --22:13 Lurdes Felix R.N. DISPOSITION / DISCHARGE Condition at departure: stable. No learning barriers present. Discharge instructions provided and reviewed with the patient. Patient verbalized understanding. Written instructions provided in Mongolian. The patient was discharged home and accompanied by spouse. She left the Emergency Department ambulatory and via private vehicle. Spouse driving. --22:29 Lurdes Felix R.N. 22:29 10/01/16. BP: 137/74. HR: 81. RR: 16. O2 saturation: 98% on room air. Temp: deferred. Pain level now: 0/10. --22:29 Lurdes Felix R.N. Locked/Released at 10/01/2016 22:34 by Lurdes Felix R.N.
--- NOTE | 2016-10-01 22:22 | ED CLINICAL REPORT ---
Clinical Report - Physicians/Mid Levels [facility] [address] [place] [address] 10/01/2016 20:32 Patient: AKASH GUTHRIE Time Seen: 20:58. Arrived- By private vehicle. Historian- patient. HISTORY OF PRESENT ILLNESS Chief Complaint: DYSPNEA and HISTORY OF ASTHMA. This started about 10 days ago and is still present. It was abrupt in onset and has been constant. The dyspnea is described as moderate. The patient has had a cough productive of scant amounts of thick, clear sputum (since before her L foot surgery done on the of of this month). No fever, chills, chest pain or discomfort or calf pain. No foot swelling. She has experienced sweating episodes and had wheezing and dyspnea on exertion. Recent medical care: The patient was seen recently at this facility and another facility in a clinic. Seen for similar symptoms. Evaluation/treatment: antibiotic prescribed. REVIEW OF SYSTEMS No chills, fever, calf pain, chest pain or pedal edema. No palpitations, abdominal pain, black stools, bloody stools or constipation. No diarrhea, nausea, vomiting or urinary problems. The patient has experienced sweats. All systems otherwise negative, except as recorded above. PAST HISTORY PCP - [facility]. Problems: Asthma. Additional Surgeries: Appendectomy. Hammer toe operation. Knee Prosthesis. Shoulder Surgery. Tonsillectomy. Medications: Azithromycin Oral. PredniSONE Oral. Hydrocodone-Acetaminophen Oral. Allergies: Dicyclomine. Doxycycline. Erythromycin. SOCIAL HISTORY Never smoker. Occasional alcohol use. No drug use. She lives with spouse. Has good social support. FAMILY HISTORY Diabetes in first-degree relative (mother); heart disease in first-degree relative (mother and father), grandparent; asthma in first-degree relative (father). mother with dementia. ADDITIONAL NOTES The nursing notes have been reviewed. PHYSICAL EXAM Vital Signs: 10/01/2016 20:46 BP: 145/68. HR: 78. RR: 16. O2 saturation: 99%. Temp: 97.9 F. Have been reviewed. Appearance: Alert. Eyes: Pupils equal, round and reactive to light. ENT: Mild pharyngeal erythema. (hoarse speech). Neck: Normal inspection. No jugular venous distention. Neck supple. No JVD, thyromegaly or carotid bruit. CVS: Normal heart rate and rhythm. Heart sounds normal. Pulses normal. Respiratory: No respiratory distress. Breath sounds normal. Abdomen: Soft and nontender. No organomegaly. Back: Normal inspection. Skin: Skin warm and dry. Normal skin color. Normal skin turgor. Extremities: Extremities exhibit normal ROM. No calf tenderness. No lower extremity edema. LABS, X-RAYS, AND EKG Chest X-ray: Hyperinflation present. (bibasilar stranding likely scarring scarring or possibly atelectasis). The X-rays were interpreted contemporaneously by me and discussed with the radiologist. PROGRESS AND PROCEDURES Course of Care: Patient is stable. Patient/family counseled. Old medical records reviewed. Disposition: Discharged. Condition: stable. CLINICAL IMPRESSION hoarseness. INSTRUCTIONS Warnings: Further evaluation is necessary. GENERAL WARNINGS: Return or contact your physician immediately if your condition worsens or changes unexpectedly, if not improving as expected, or if other problems arise. Your Current Medications: CONTINUE TAKING THE FOLLOWING MEDICATIONS: Azithromycin Oral. Hydrocodone-Acetaminophen Oral. PredniSONE Oral. Follow-up: Follow up with your doctor tomorrow. Call for the next available appointment. Follow up with an ear, nose and throat physician (an cafe worker)- as recommended by your primary care physician. Understanding of the discharge instructions verbalized by patient and family. Follow-up with: Jeramie Lin MD, ENT, , [address], , [place], [id number] Follow up. Call for the next available appointment. (Electronically signed by Dante Faulkner MD 10/01/2016 22:56)
--- NOTE | 2016-10-01 22:22 | ED ORDER SUMMARY ---
..... Patient: AKASH GUTHRIE OrderSheet [facility] VisitID: [id number] [address] [place] [address] 71y, F Registration Date/Time: 10/01/2016 ORDER SHEET Weight: 68.0 kg (stated) Allergies: Dicyclomine, Doxycycline, Erythromycin GENERAL ORDERS: Chest 2V Urgent (21:34 10/01/2016 Robina FELDER) (Ack 21:38 Ameya) (21:51 [facility]) MEDICATION ORDERS: IV FLUIDS: ORDER SHEET NOTES: [Electronically signed by Lurdes Felix R.N. (22:33 10/01/2016)] [Electronically signed by Dante Faulkner MD (22:56 10/01/2016)] [Electronically locked/signed by Lurdes Felix R.N. (22:33 10/01/2016)]
--- NOTE | 2016-10-01 22:22 | ED ORDER SUMMARY ---
..... Patient: AKASH GUTHRIE OrderSheet [facility] VisitID: [id number] [address] [place] [address] 71y, F Registration Date/Time: 10/01/2016 ORDER SHEET Weight: 68.0 kg (stated) Allergies: Dicyclomine, Doxycycline, Erythromycin GENERAL ORDERS: Chest 2V Urgent (21:34 10/01/2016 Robina FELDER) (Ack 21:38 Ameya) (21:51 [facility]) MEDICATION ORDERS: IV FLUIDS: ORDER SHEET NOTES: [Electronically signed by Lurdes Felix R.N. (22:33 10/01/2016)] [Electronically signed by Dante Faulkner MD (22:56 10/01/2016)] [Electronically locked/signed by Lurdes Felix R.N. (22:33 10/01/2016)]
--- NOTE | 2016-10-01 22:56 | ED MED RECONCILIATION SUMMARY ---
Patient: AKASH GUTHRIE Medication Reconciliation Report [facility] VisitID: [id number] [address] [place] [address] 71y, F Registration Date/Time: 10/01/2016 Weight: 68.0 kg Height/Length: 65 in. BMI: 25.0 ALLERGIES: Dicyclomine, Doxycycline, Erythromycin The patient's Home Medications are listed below: CONTINUE TAKING THE FOLLOWING MEDICATIONS: Azithromycin Oral Hydrocodone-Acetaminophen Oral PredniSONE Oral The source(s) of the original Home Medication information: Not obtained. The following Medications were given to the patient in the Emergency Department: None. The following Medications were prescribed to the patient: None.
--- NOTE | 2016-10-01 22:56 | ED DISCHARGE INSTRUCTIONS ---
Patient: AKASH GUTHRIE General Instructions [facility] VisitID: [id number] [address] [place] [address] 71y, F Registration Date/Time: 10/01/2016 hoarseness. INSTRUCTIONS Warnings: Further evaluation is necessary. GENERAL WARNINGS: Return or contact your physician immediately if your condition worsens or changes unexpectedly, if not improving as expected, or if other problems arise. Your Current Medications: CONTINUE TAKING THE FOLLOWING MEDICATIONS: Azithromycin Oral. Hydrocodone-Acetaminophen Oral. PredniSONE Oral. Follow-up: Follow up with your doctor tomorrow. Call for the next available appointment. Follow up with an ear, nose and throat physician (an framer)- as recommended by your primary care physician. Understanding of the discharge instructions verbalized by patient and family. Follow-up with: Jeramie Lin MD, ENT, , [address], , [place], [id number] Follow up. Call for the next available appointment. (Electronically signed by Dante Faulkner MD 10/01/2016 22:56)
--- NOTE | 2016-10-01 22:56 | ED MAR SUMMARY ---
..... Medication Administration Record [facility] [address] [place], [place] [id number] Patient: LIZ GUTHRIEINE Aline Visit ID: [id number] 71y, F Weight: 68.0 kg Height/Length: 65 in BMI: 25 ALLERGIES: Doxycycline, Dicyclomine, Erythromycin
--- NOTE | 2016-10-01 22:56 | ED DISCHARGE INSTRUCTIONS ---
Patient: AKASH GUTHRIE General Instructions [facility] VisitID: [id number] [address] [place] [address] 71y, F Registration Date/Time: 10/01/2016 hoarseness. INSTRUCTIONS Warnings: Further evaluation is necessary. GENERAL WARNINGS: Return or contact your physician immediately if your condition worsens or changes unexpectedly, if not improving as expected, or if other problems arise. Your Current Medications: CONTINUE TAKING THE FOLLOWING MEDICATIONS: Azithromycin Oral. Hydrocodone-Acetaminophen Oral. PredniSONE Oral. Follow-up: Follow up with your doctor tomorrow. Call for the next available appointment. Follow up with an ear, nose and throat physician (an chief of pediatric urology)- as recommended by your primary care physician. Understanding of the discharge instructions verbalized by patient and family. Follow-up with: Jeramie Lin MD, ENT, , [address], , [place], [phone] Follow up. Call for the next available appointment. (Electronically signed by Dante Faulkner MD 10/01/2016 22:56)
--- NOTE | 2016-10-01 22:56 | ED MAR SUMMARY ---
..... Medication Administration Record [facility] [address] [place] [place], [place] [id number] Patient: LIZ GUTHRIEINE Aline Visit ID: [id number] 71y, F Weight: 68.0 kg Height/Length: 65 in BMI: 25 ALLERGIES: Doxycycline, Dicyclomine, Erythromycin
--- NOTE | 2016-10-01 22:56 | ED MED RECONCILIATION SUMMARY ---
Patient: AKASH GUTHRIE Medication Reconciliation Report [facility] VisitID: [id number] [address] [place] [address] 71y, F Registration Date/Time: 10/01/2016 Weight: 68.0 kg Height/Length: 65 in. BMI: 25.0 ALLERGIES: Dicyclomine, Doxycycline, Erythromycin The patient's Home Medications are listed below: CONTINUE TAKING THE FOLLOWING MEDICATIONS: Azithromycin Oral Hydrocodone-Acetaminophen Oral PredniSONE Oral The source(s) of the original Home Medication information: Not obtained. The following Medications were given to the patient in the Emergency Department: None. The following Medications were prescribed to the patient: None.
== END 2016-10-01 22:28 | disposition home or self-care (01) ==
LOC: ED SRH 20:31
DX: R49.0 Dysphonia (principal); Z87.09 Personal history of other diseases of the respiratory system; Z88.1 Allergy status to other antibiotic agents; Z79.2 Long term (current) use of antibiotics